=== PATIENT | male | born 1995 | race Caucasian/White ===

== ENCOUNTER 2019-05-21 11:17 | Emergency (ER) | payer MEDICAID ==
--- NOTE | 2019-05-21 12:21 | ED Physician Chart ---
ED Chief Complaint/HPI - Patient Information Date Seen:: 05/21/19 Time Seen:: 11:40 Chief Complaint:: Sore throat for about 9 days. History of Present Illness:: Pt came in by private auto because of sore throat for about 9 days. Pt has had fever for about one day. No N/V/D. No mentation change. No dyspnea or lightheadedness. Pt has not had any analgesic or antipyretic today. Allergies:: Allergies Allergy/AdvReac Type Severity Reaction Status Date / Time No Known Allergies Allergy Verified 05/21/19 11:30 Vitals:: Vital Signs - 8 hr 05/21/19 11:25 Temp 100.2 F HR 69 RR 16 BP 124/70 O2 Sat % 97 Historian:: Patient Family MD/PCP:: None LMP:: N/A Review:: Nurse's Note Reviewed ED Review of Systems - Review of Systems General/Constitutional: Fever, No chills, No weight loss, No weakness, No edema , No loss of appetite Skin: No skin lesions, No rash, No bruising Head: No headache, No light-headedness Eyes: No loss of vision, No pain, No diplopia ENT: No earache, No nasal drainage, Sore throat Neck: No neck pain, No swelling, No stiffness, No mass noted Cardio Vascular: No chest pain Pulmonary: No SOB, No cough, No wheezing GI: No nausea, No vomiting, No pain G/U: No dysuria, No frequency, No hematuria Musculoskeletal: No bone or joint pain Endocrine: No polyuria, No polydipsia Psychiatric: No prior psych history Hematopoietic: No bruising Allergic/Immuno: No urticaria, No angioedema Neurological: No syncope, No focal symptoms, No weakness, No paresthesia, No headache, No dizziness, No confusion ED Past Medical History - Past Medical History Past Medical History: No significant medical hx Family History: Diabetes Melitus Social History: Smoker (Pt has been informed about health risks associated with chronic tobacco use and has been advised to stop. Pt has been encouraged to enroll in a smoking cessation program. Pt acknowledges understanding.), Alcohol (rare use.), No Drug Use, , Other (lives with his .) Employment:: material handler floorperson. Surgical History: None Psychiatricy History: None Medication: None Family Medical History - Family Member Mother History Unknown: Yes ED Physical Exam - Physical Examination General/Constitutional: Awake, Well-developed, well-nourished (male), No distress, Non-toxic appearing, Ambulatory Other Gen/Cons comments:: Breathes comfortably, speaks clearly, and interacts appropriately. Head: Atraumatic Eyes: Lids, conjuctiva normal, PERRL, EOMI Skin: Nl inspection, No rash, Well hydrated Other Skin comments:: Mild cervical lymphadenopathy. ENMT: External ears, nose nl, Nasal exam nl, Lips, teeth, gums nl Other ENMT comments:: L ear is normal. R ear shows mild erythema in TM. No exudate. Throat shows erythema in pharynx with trace white exudate. Neck: Nontender, Full ROM w/o pain, No nuchal rigidity, No mass, No stridor Respiratory: Nl effort/Exclusion, Clear to Auscultation, No Wheeze/Rhonchi/Rales Cardio Vascular: RRR, No murmur, gallop, rubs GI: No tenderness/rebounding/guarding, No organomegaly, Normal BS's, Nondistended Other GI comments:: Abdomen is soft. Extremities: normal strength in all extremities, No edema Neuro/Psych: Alert/oriented (oriented x 3), No focal deficits ED Septic Shock - . Is Septic Shock (SBP<90, OR Lactate>4 mmol\L) present?: No - <6hrs of presentation: Vital Signs: Vital Signs - 8 hr 05/21/19 11:25 Temp 100.2 F HR 69 RR 16 BP 124/70 O2 Sat % 97 ED Reassessment (Disposition) - Reassessment Reassessment:: 1225 Pt remains stable. Pt requests to go home now and does not want further observation/management in hospital. Aftercare instructions have been given. - Diagnosis Diagnosis:: Acute pharyngitis. Early right otitis media. - Aftercare/Follow up Instructions Aftercare/Follow-Up Instructions:: Refer to Discharge Instructions Notes:: Bed rest for today. Increase oral hydration. May take Tylenol and/or Motrin as directed as needed for pain or fever. May use Cepacol lozenges as directed as needed. Oral hygiene instructions given. F/U Dr. Estrada or PCP of pt's choice Medication Prescribed:: Amoxicillin 500 mg tab one tab po q8h for 10 days. D-30 R-0 - Patient Disposition Discharge/Transfer:: Home Time:: 12:35 Condition at Disposition:: Stable
== END 2019-05-21 12:50 | disposition home or self-care (01) ==
LOC: ER 11:17
DX: J02.9 Acute pharyngitis, unspecified (principal); R59.0 Localized enlarged lymph nodes; F17.210 Nicotine dependence, cigarettes, uncomplicated
CPT/HCPCS: Z7502